=== PATIENT | female | born 1995 | race Caucasian/White ===

== ENCOUNTER 2017-04-07 07:01 | Emergency (ER) | payer OTHER ==
[2017-04-07 07:10] VITALS: BMI 18.8
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
[2017-04-07] MEDS ORDERED: IBUPROFEN 400 MG TABLET (FP) PO ONE (07:49)
[2017-04-07] MEDS ORDERED: IBUPROFEN 600 MG TABLET (FP) PO ONE (08:06)
[2017-04-07 09:31] VITALS: BP 120/62; PULSE 99; TEMP 98.2
== END 2017-04-07 09:35 | disposition short-term general hospital (02) ==
LOC: JER 07:01
DX: T76.21XA Adult sexual abuse, suspected, initial encounter (principal)
CPT/HCPCS: 99284-25